=== PATIENT | female | born 1985 | race Caucasian/White ===

== ENCOUNTER 2020-03-17 15:01 | Emergency (ER) | payer OTHER ==
[~2020-03-17] VITALS: Ht 167.6 cm; Wt 57.6 kg
[2020-03-17 15:30] LABS: ABSOLUTE NEUTROPHILS 4.1 thou/uL (1.4-8.2); EOSINOPHILS 5.4 % (0.0-3.0); HEMATOCRIT 41.3 % (37.0-47.0); LYMPHOCYTES 43.9 % (24.0-44.0); MCH 28.3 pg (26.0-34.0); MCV 83.3 fL (80.0-100.0); MONOCYTES 5.9 % (1.0-8.0); PLATELET COUNT 281 thou/uL (150-400); POLYS 43.8 % (36.0-66.0); RBC 4.95 mil/uL (4.20-5.00); RDW 13.9 % (10.5-14.5); WBC 9.4 thou/uL (4.0-11.0)
[2020-03-17 15:36] LABS: ANION GAP 10 mmol/L (7-16); BUN 13 mg/dL (7-18); CALCIUM 9.4 mg/dL (8.5-10.1); CHLORIDE 101 mmol/L (98-107); CO2 23 mmol/L (21-32); CREATININE 0.7 mg/dL (0.6-1.0); GLUCOSE 108 mg/dL (74-106); POTASSIUM 3.7 mmol/L (3.5-5.1); SODIUM 134 mmol/L (136-145)
[2020-03-17 15:46] LABS: ALBUMIN 3.5 g/dL (3.4-5.0); MAGNESIUM 1.7 mg/dL (1.8-2.4); SGOT 23 U/L (15-37); SGPT 34 U/L (30-65); TOTAL BILIRUBIN 0.8 mg/dL (0.2-1.0); TOTAL PROTEIN 7.1 g/dL (6.4-8.2); TROPONIN-I <0.06 ng/mL (<0.06)
[2020-03-17 16:17] LABS: AMP/METHAMP Negative (Negative); BARBITURATES Negative (Negative); BENZODIAZEPINES Negative (Negative); COCAINE Negative (Negative); METHADONE Negative (Negative); OPIATES Negative (Negative); PCP Negative (Negative)
[2020-03-17] MEDS ORDERED: PROPRANOLOL 4040 M1 PO (16:45)
[2020-03-17 17:03] VITALS: BP 110/57
--- NOTE | 2020-03-18 08:44 | EKG ---
[facility] [place] [address] ELECTROCARDIOGRAM REPORT Name: ISMA CONNER Room #: [facility] [id number] Admission: 03/17/20 Attend Phys: Discharge: 03/17/20 Date of : 81 Report #: [id number] THIS REPORT FOR: cc: BERTHA - Shala family physician/PCP BERTHA - No family physician/PCP Gilberto Em MD ~ THIS REPORT FOR: //name// [facility] ED Test Date: 2020-03-17 Test Time: 15:10:49 Pat Name: ISMA CONNER Department: Room: Gender: Felt Puller: [id number] : 1985 Requested By: Phillip Wahl Order Number: [id number] MD: Gilberto Em Measurements Intervals [place] Rate: 101 P: 49 [place]: 117 QRS: 60 QRSD: 81 T: 52 QT: 324 QTc: 420 Interpretive Statements Sinus tachycardia Consider left ventricular hypertrophy Baseline wander in lead(s) II,III,aVR,aVF,V2,V3,V4,V5 No previous ECG available for comparison Electronically Signed On 03-18-2020 8:43:35 CDT by Gilberto Em [email or web address] <ELECTRONICALLY SIGNED> By: Gilberto Em MD 03/18/20 0843 1510 Gilberto Em MD /EPI
== END 2020-03-17 17:08 | disposition home or self-care (01) ==
LOC: ER 15:01
PROVIDERS: Emergency Medicine
DX: E05.90 Thyrotoxicosis, unspecified without thyrotoxic crisis or storm (principal); R00.0 Tachycardia, unspecified; F17.210 Nicotine dependence, cigarettes, uncomplicated; Z88.5 Allergy status to narcotic agent

== ENCOUNTER 2020-05-31 13:06 | Emergency (ER) | payer OTHER ==
[~2020-05-31] VITALS: Ht 170.2 cm; Wt 58.1 kg
[~2020-05-31 13:06] MED LIST: PROPRANOLOL 4040 M1 PO
[2020-05-31] MEDS ORDERED: NOHOMEMEDICATIONS (13:19)
[2020-05-31 13:21] LABS: URINE BILIRUBIN NEGATIVE (Negative); URINE BLOOD TRACE (Negative); URINE CLARITY CLEAR; URINE COLOR YELLOW; URINE GLUCOSE-RANDOM* NEGATIVE (Negative); URINE KETONES NEGATIVE (Negative); URINE LEUKOCYTES-REFLEX NEGATIVE (Negative); URINE NITRITE-REFLEX NEGATIVE (Negative); URINE PROTEIN (DIPSTICK) NEGATIVE (Negative); URINE UROBILINOGEN 0.2 E.U./dl (0.2-1.0)
[2020-05-31 14:23] VITALS: BP 107/43
--- NOTE | 2020-06-01 08:25 | EKG ---
[facility] [place] [address] ELECTROCARDIOGRAM REPORT Name: ISMA CONNER Room #: [facility]#: [id number] Admission: 05/31/20 Attend Phys: Discharge: 05/31/20 Date of : 81 Report #: [id number] THIS REPORT FOR: cc: BERTHA - No family physician/PCP BERTHA - No family physician/PCP Damaso Art MD [facility] THIS REPORT FOR: //name// [facility] ED Test Date: 2020-05-31 Test Time: 13:26:06 Pat Name: ISMA CONNER Department: Room: Gender: F Associate Attorney: [facility] : 1985 Requested By: Izzy Livingston Order Number: [id number] MD: Damaso Art Measurements Intervals [place] Rate: 98 P: 52 [place]: 112 QRS: 67 QRSD: 74 T: 56 QT: 316 QTc: 404 Interpretive Statements Sinus rhythm Borderline short [place] interval Compared to ECG 03/17/2020 15:10:49 Sinus tachycardia no longer present Electronically Signed On 06-01-2020 8:25:18 CDT by Damaso Art [email or web address] <ELECTRONICALLY SIGNED> By: Damaso Art MD, FAC 06/01/20 0825 1326 1326 Damaso Art MD, [facility] /EPI
== END 2020-05-31 14:20 | disposition left against medical advice (07) ==
LOC: ER 13:06
PROVIDERS: Physician Assistant
DX: R30.9 Painful micturition, unspecified (principal); H92.02 Otalgia, left ear; R07.89 Other chest pain; R20.0 Anesthesia of skin; R10.9 Unspecified abdominal pain; Z53.21 Procedure and treatment not carried out due to patient leaving prior to being seen by health care provider